=== PATIENT | male | born 1995 | race African-American/Black ===

== ENCOUNTER 2017-05-16 22:18 | Emergency (ER) | payer BC, MEDICAID ==
[~2017-05-16] VITALS: Ht 175.3 cm; Wt 59.0 kg
[2017-05-16 22:27] VITALS: BP 141/84
== END 2017-05-17 02:18 | disposition home or self-care (01) ==
LOC: ER 22:18
DX: H10.9 Unspecified conjunctivitis (principal)

== ENCOUNTER 2017-05-26 10:37 | Emergency (ER) | payer MEDICAID ==
[~2017-05-26] VITALS: Ht 175.3 cm; Wt 63.5 kg
[2017-05-26 10:51] VITALS: BP 139/86
== END 2017-05-26 11:41 | disposition home or self-care (01) ==
LOC: ER 10:37
DX: H10.33 Unspecified acute conjunctivitis, bilateral (principal)

== ENCOUNTER 2017-06-01 12:15 | Emergency (ER) | payer MEDICAID ==
[~2017-06-01] VITALS: Ht 175.3 cm; Wt 77.1 kg
[2017-06-01 13:00] VITALS: BP 136/87
== END 2017-06-01 14:00 | disposition home or self-care (01) ==
LOC: ER 12:15
DX: B99.8 Other infectious disease (principal); H10.89 Other conjunctivitis; Z76.0 Encounter for issue of repeat prescription

== ENCOUNTER 2017-09-07 13:31 | Emergency (ER) | payer MEDICAID ==
[~2017-09-07] VITALS: Ht 172.7 cm; Wt 61.7 kg
[2017-09-07 13:43] VITALS: BP 124/66
== END 2017-09-07 16:03 | disposition home or self-care (01) ==
LOC: ER 13:31
DX: L25.9 Unspecified contact dermatitis, unspecified cause (principal)

== ENCOUNTER 2018-01-17 09:51 | Emergency (ER) | payer MEDICAID ==
[~2018-01-17] VITALS: Ht 172.7 cm; Wt 58.1 kg
[2018-01-17 10:17] VITALS: BP 110/64
== END 2018-01-17 10:38 | disposition home or self-care (01) ==
LOC: ER 09:51
DX: S63.602A Unspecified sprain of left thumb, initial encounter (principal); L25.9 Unspecified contact dermatitis, unspecified cause; F12.10 Cannabis abuse, uncomplicated; X50.1XXA Overexertion from prolonged static or awkward postures, initial encounter; Y93.89 Activity, other specified; Y92.89 Other specified places as the place of occurrence of the external cause; Y99.8 Other external cause status
CPT/HCPCS: 73130